=== PATIENT | male | born 1970 | race Caucasian/White ===

== ENCOUNTER 2025-07-19 13:34 | Emergency (ER) | payer OTHER ==
[~2025-07-19] VITALS: Ht 185.4 cm; Wt 99.8 kg
[2025-07-19 13:39] VITALS: BP 129/89
[2025-07-19 13:57] LABS: PLATELET COUNT (AUTO) 279 K/uL (152-348); RED BLOOD CELL COUNT(AUTO) 4.38 MIL/uL (4.06-5.63); RED CELL DISTRIBUTION WIDTH 14.0 % (12.1-16.2); WHITE BLOOD COUNT (AUTO) 7.4 K/uL (3.6-10.2)
[2025-07-19] MEDS: IV NORMAL SALINE 1000 ML BAG IV ONE (13:57)
[2025-07-19 14:03] LABS: CREATININE 2.3 mg/dL (0.6-1.3); SODIUM SERUM 138.0 mmol/L (136-145); UREA NITROGEN, BLOOD 22.0 mg/dL (7-18)
[2025-07-19 14:09] LABS: ASPARTATE AMINOTRANSFERASE 32.0 U/L (15-37); ETHANOL < 3 MG/DL (0-10); TOTAL PROTEIN, SERUM 7.0 g/dL (6.4-8.2)
[2025-07-19 14:36] LABS: *AMPHETAMINE, URINE NEGATIVE (NEGATIVE); *BARBITURATE, URINE NEGATIVE (NEGATIVE); *BENZODIAZEPINE, URINE NEGATIVE (NEGATIVE); *CANNABINOID, URINE NEGATIVE (NEGATIVE); *COCCAINE, URINE NEGATIVE (NEGATIVE); *OPIATE, URINE NEGATIVE (NEGATIVE); *PHENCYCLIDINE SCREEN,URINE NEGATIVE (NEGATIVE); FENTANYL, URINE NEGATIVE (NEGATIVE)
[2025-07-19 15:12] VITALS: BP 129/89; O2SAT 98
== END 2025-07-19 15:13 | disposition home or self-care (01) ==
LOC: ER 13:34
DX: R56.9 Unspecified convulsions (principal); R73.9 Hyperglycemia, unspecified; E63.9 Nutritional deficiency, unspecified; E86.0 Dehydration; E87.20 Acidosis, unspecified; I49.3 Ventricular premature depolarization; N17.9 Acute kidney failure, unspecified; Z86.73 Personal history of transient ischemic attack (TIA), and cerebral infarction without residual deficits; Z88.7 Allergy status to serum and vaccine
CPT/HCPCS: 80076; 80048; 82962; 85025; 36415; 71045; 70450; 93005; 99285; 96365; 80320; 80307; J1953 ×2; J7040; A4606; A4663; G0480